=== PATIENT | female | born 1975 | race Caucasian/White ===

== ENCOUNTER 2016-09-21 11:37 | Emergency (ER) | payer OTHER ==
[~2016-09-21] VITALS: Ht 162.6 cm; Wt 67.3 kg
[2016-09-21 14:27] VITALS: BP 138/98
== END 2016-09-21 14:27 | disposition home or self-care (01) ==
LOC: ED 11:37
DX: R19.7 Diarrhea, unspecified (principal); R11.2 Nausea with vomiting, unspecified; R63.0 Anorexia; R03.0 Elevated blood-pressure reading, without diagnosis of hypertension
CPT/HCPCS: Q0162

== ENCOUNTER 2016-10-04 22:41 | Emergency (ER) | payer OTHER | END 2016-10-05 04:05 | disposition other institution (70) | LOC: ED 22:41 | DX: Z02.89 Encounter for other administrative examinations (principal); S33.5XXA Sprain of ligaments of lumbar spine, initial encounter; S16.1XXA Strain of muscle, fascia and tendon at neck level, initial encounter; S80.01XA Contusion of right knee, initial encounter; R07.81 Pleurodynia; F10.129 Alcohol abuse with intoxication, unspecified; V43.92XA Unspecified car occupant injured in collision with other type car in traffic accident, initial encounter; Y93.89 Activity, other specified; Y99.8 Other external cause status; Y92.89 Other specified places as the place of occurrence of the external cause ==

== ENCOUNTER 2016-10-04 22:41 | Emergency (ER) | payer OTHER ==
[2016-10-05 04:05] VITALS: BP 125/73
== END 2016-10-05 04:05 | disposition other institution (70) ==
LOC: ED 22:41
DX: S33.5XXA Sprain of ligaments of lumbar spine, initial encounter (principal); S16.1XXA Strain of muscle, fascia and tendon at neck level, initial encounter; S80.01XA Contusion of right knee, initial encounter; R07.81 Pleurodynia; F10.129 Alcohol abuse with intoxication, unspecified; V43.52XA Car driver injured in collision with other type car in traffic accident, initial encounter; Y93.89 Activity, other specified; Y99.8 Other external cause status; Y92.89 Other specified places as the place of occurrence of the external cause

== ENCOUNTER 2016-11-27 10:05 | Emergency (ER) | payer OTHER ==
[~2016-11-27] VITALS: Ht 162.6 cm; Wt 67.3 kg
[2016-11-27 11:59] VITALS: BP 169/84
== END 2016-11-27 11:59 | disposition home or self-care (01) ==
LOC: ED 10:05
DX: J20.9 Acute bronchitis, unspecified (principal); J01.00 Acute maxillary sinusitis, unspecified; H92.03 Otalgia, bilateral

== ENCOUNTER 2017-04-27 08:55 | Emergency (ER) | payer OTHER ==
[~2017-04-27] VITALS: Ht 170.2 cm; Wt 63.5 kg
[2017-04-27 10:25] LABS: BASOPHIL % 1.2 % (0-2); PLATELET COUNT 198 x10^3mcL (130-400)
[2017-04-27 10:28] LABS: RED CELL DISTRIBUTION WIDTH 18.7 % (11.5-14.5)
[2017-04-27 10:31] LABS: CALCIUM 8.6 mg/dL (8.5-10.1); CARBON DIOXIDE 25.8 mmol/L (21-32); CHLORIDE SERUM 103 mmol/L (98-107); CREATININE SERUM 0.7 mg/dL (0.6-1.0); GFR1 > 60 mL/min; GLUCOSE SERUM 124 mg/dL (74-106); POTASSIUM SERUM 3.6 mmol/L (3.5-5.1); SODIUM SERUM 138 mmol/L (136-145)
[2017-04-27 10:35] LABS: ALBUMIN 3.4 g/dL (3.4-5.0); ALKALINE PHOSPHATASE 89 U/L (46-116); ALT/SGPT 136 U/L (14-59); AMYLASE 44 U/L (25-115); AST/SGOT 134 U/L (15-37); BILIRUBIN TOTAL 0.6 mg/dL (0.20-1.00); LIPASE 191 IU/L (73-393); TOTAL PROTEIN, SERUM 7.2 g/dL (6.4-8.2)
[2017-04-27 11:47] VITALS: BP 154/97
== END 2017-04-27 13:02 | disposition home or self-care (01) ==
LOC: ED 08:55
PROVIDERS: Emergency Medicine
DX: R10.9 Unspecified abdominal pain (principal); R11.2 Nausea with vomiting, unspecified; R19.7 Diarrhea, unspecified; I10 Essential (primary) hypertension; F10.20 Alcohol dependence, uncomplicated
CPT/HCPCS: 83880; J2405; J3010; J7030

== ENCOUNTER 2017-12-09 17:49 | Emergency (ER) | payer OTHER ==
[~2017-12-09] VITALS: Ht 162.6 cm; Wt 62.6 kg
[2017-12-09 17:58] VITALS: BP 140/87; Ht 162.6 cm; Wt 62.6 kg
== END 2017-12-09 19:45 | disposition left against medical advice (07) ==
LOC: ED 17:49
DX: Z53.21 Procedure and treatment not carried out due to patient leaving prior to being seen by health care provider (principal)

== ENCOUNTER 2019-11-18 11:11 | Emergency (ER) | payer OTHER ==
[~2019-11-18] VITALS: Ht 160 cm; Wt 62.1 kg
[2019-11-18 11:49] LABS: BASOPHIL % 0.8 % (0-2); PLATELET COUNT 259 x10^3mcL (130-400)
[2019-11-18 11:59] LABS: RED CELL DISTRIBUTION WIDTH 18.5 % (11.5-14.5)
[2019-11-18 12:07] LABS: CALCIUM 8.8 mg/dL (8.5-10.1); CARBON DIOXIDE 25.9 mmol/L (21-32); CHLORIDE SERUM 101 mmol/L (98-107); CREATININE SERUM 0.6 mg/dL (0.6-1.0); GFR1 > 60 mL/min; GLUCOSE SERUM 106 mg/dL (74-106); POTASSIUM SERUM 3.7 mmol/L (3.5-5.1); SODIUM SERUM 135 mmol/L (136-145)
[2019-11-18 12:12] LABS: ALBUMIN 3.6 g/dL (3.4-5.0); ALKALINE PHOSPHATASE 59 U/L (46-116); ALT/SGPT 40 U/L (14-59); AST/SGOT 24 U/L (15-37); BILIRUBIN TOTAL 0.53 mg/dL (0.20-1.00); LIPASE 146 IU/L (73-393); TOTAL PROTEIN, SERUM 7.4 g/dL (6.4-8.2)
[2019-11-18 13:31] VITALS: BP 175/94
== END 2019-11-18 13:31 | disposition home or self-care (01) ==
LOC: ED 11:11
PROVIDERS: Emergency Medicine
DX: I10 Essential (primary) hypertension (principal); R10.13 Epigastric pain; R11.10 Vomiting, unspecified; E03.9 Hypothyroidism, unspecified; R19.7 Diarrhea, unspecified
CPT/HCPCS: 83880; J2405; J3490; Q0092